=== PATIENT | male | born 1945 | race Caucasian/White ===

== ENCOUNTER → 2018-11-12 | Outpatient (CLI) | payer MEDICARE | END | disposition home or self-care (01) | LOC: LAB 13:29 | PROVIDERS: ATTEND Otolaryngology Plastic Surgery within the Head & Neck | DX: R42 Dizziness and giddiness (principal) | CPT/HCPCS: 36415; 82565; 84520 ==

== ENCOUNTER → 2018-11-13 | Outpatient (CLI) | payer MEDICARE ==
[~2018-11-13] MED LIST: GADODIAMIDE 10 MMOL/20 ML ML IV ONE
== END | disposition home or self-care (01) ==
LOC: RAH 12:49
PROVIDERS: ATTEND Otolaryngology Plastic Surgery within the Head & Neck
DX: G31.9 Degenerative disease of nervous system, unspecified (principal); R42 Dizziness and giddiness
CPT/HCPCS: 70553; A9579

== ENCOUNTER 2022-06-18 05:51 | Observation (INO) | payer MEDICARE ==
[2022-06-14 11:29] LABS: APPEARANCE,URINE CLEAR (CLEAR); BILIRUBIN,URINE NEGATIVE (NEGATIVE); COLOR,URINE YELLOW (YELLOW); GLUCOSE, URINE (UA) NEGATIVE (NEGATIVE); KETONES,URINE NEGATIVE (NEGATIVE); LEUKOCYTE ESTERASE ,URINE NEGATIVE (NEGATIVE); NITRATE,URINE NEGATIVE (NEGATIVE); OCCULT BLOOD,URINE NEGATIVE (NEGATIVE); PROTEIN,URINE NEGATIVE (NEGATIVE); UROBILINOGEN,URINE 0.2 mg/dL (0.2-1.0)
[2022-06-14 12:01] LABS: BASOPHILS % (AUTO) 0.6 % (0.0-5.0); EOSINOPHILS % (AUTO) 2.3 % (0.0-8.0); HEMATOCRIT 41.6 % (42-54); LYMPHOCYTES % (AUTO) 34.5 % (21.0-51.0); MEAN CORPUSCULAR HEMOGLOBIN 29.3 pg (27.0-33.0); MEAN CORPUSCULAR HGB CONC 33.2 g/dL (32.0-36.0); MEAN CORPUSCULAR VOLUME 88.3 fL (79-99); MONOCYTES % (AUTO) 11.3 % (3.0-13.0); NEUTROPHILS % (AUTO) 51.1 % (40.0-77.0); PLATELET COUNT (AUTO) 133 K/uL (130-400); RED BLOOD CELL COUNT(AUTO) 4.71 MIL/uL (4.50-6.20); RED CELL DISTRIBUTION WIDTH 12.8 % (11.0-15.5); WHITE BLOOD COUNT (AUTO) 6.2 K/uL (4.8-10.8)
[2022-06-14 12:10] LABS: INR 0.93 (0.85-1.15)
[2022-06-14 12:11] LABS: PARTIAL THROMBOPLASTIN TIME 30.2 SEC (26.3-35.5)
[2022-06-14 12:16] LABS: POTASSIUM 4.2 mmol/L (3.5-5.1)
[2022-06-14 12:44] LABS: B-TYPE NATRIURETIC PEPTIDE 119 pg/mL (0-100)
[2022-06-14 13:29] VITALS: BP 177/86
[~2022-06-18] VITALS: Ht 175.3 cm; Wt 112.8 kg
[2022-06-18] VITALS (14 sets, daily range): BP systolic 139–189; BP diastolic 66–102
[~2022-06-18 05:51] MED LIST changes: +BETA60LO TP; +CITA-107 PO; +CYAN200018 PO; +DIPH1TAB24 PO; +GABA-529 PO; -GADODIAMIDE 10 MMOL/20 ML ML IV ONE; +LISI10TA24 PO; +LORA10TA7 PO; +MEMA5TAB42 PO
[2022-06-18] MEDS ORDERED: 0.9% NACL 500ML IV.SOLN 500 ML IV SCH (06:00)
[2022-06-18] MEDS ORDERED: 0.9%NACL 1000ML 1,000 ML IV ONE (06:17)
[2022-06-18] MEDS ORDERED: LIDOCAINE HCL 400MG/20ML VIAL ONE (09:25)
[2022-06-18] MEDS ORDERED: IOHEXOL-350 50ML VIAL IV ONE (09:25)
[2022-06-18] MEDS ORDERED: NITROGLYCERIN 50MG VIAL ONE (09:25)
[2022-06-18] MEDS ORDERED: IOHEXOL 350 MG/ML 100ML INFUS..BTL IV ONE ×2 (09:27→10:34)
[2022-06-18] MEDS ORDERED: MIDAZOLAM HCL 1 MG/ML 2ML VIAL ONE (09:57)
[2022-06-18] MEDS ORDERED: FENTANYL CITRATE PF 50 MCG/1 ML 2ML VIAL ONE (09:57)
[2022-06-18] MEDS ORDERED: BIVALIRUDIN 250 MG/VIAL IV ONE (10:29)
[2022-06-18] MEDS ORDERED: CLOPIDOGREL 300MG TAB ONE (10:44)
[2022-06-18] MEDS ORDERED: ASPIRIN 325MG EC TAB PO ONE (10:45)
[2022-06-18] MEDS ORDERED: DEXTROSE 50%-WATER 50 ML DISP.SYRIN IV PRN (11:00)
[2022-06-18] MEDS ORDERED: GLUCAGON 1MG KIT 1 MG ML IM PRN (11:00)
[2022-06-18] MEDS ORDERED: 0.9%NACL 1000ML 1,000 ML IV SCH (11:00)
[2022-06-18] MEDS ORDERED: ATORVASTATIN 10 MG TABLET PO SCH (21:00)
[2022-06-19 00:21] VITALS: BP 144/88
[2022-06-19 03:21] VITALS: BP 143/79
[2022-06-19 07:17] VITALS: BP 150/97
[2022-06-19] MEDS ORDERED: METOPROLOL SUCCINATE 25 MG TAB.SR.24H PO SCH (09:00)
[2022-06-19] MEDS ORDERED: ASPIRIN 81MG CHEW TAB PO SCH (09:00)
[2022-06-19] MEDS ORDERED: CLOPIDOGREL 75MG TAB PO SCH (09:00)
[2022-06-19] MEDS ORDERED: ACETAMINOPHEN 325 MG TAB PO SCH (11:00)
[2022-06-19 11:35] VITALS: BP 132/76
== END 2022-06-19 13:20 | disposition home or self-care (01) ==
LOC: DAH 05:51 → DAHIP 05:52 → DAH 05:52 → 2AH 11:30
PROVIDERS: ADMIT Internal Medicine Cardiovascular Disease; ATTEND Internal Medicine Cardiovascular Disease
DX: I25.10 Atherosclerotic heart disease of native coronary artery without angina pectoris (principal); I35.0 Nonrheumatic aortic (valve) stenosis; I11.0 Hypertensive heart disease with heart failure; I50.32 Chronic diastolic (congestive) heart failure; N40.0 Benign prostatic hyperplasia without lower urinary tract symptoms; G30.9 Alzheimer's disease, unspecified; F02.80 Dementia in other diseases classified elsewhere, unspecified severity, without behavioral disturbance, psychotic disturbance, mood disturbance, and anxiety; Z98.61 Coronary angioplasty status; Z79.899 Other long term (current) drug therapy
CPT/HCPCS: 80048; 83880; 85025; 85610; 85730; 81003; 36415; 71045; 93005; 93454; 76882; C1769; C1887; C1894 ×4; C1760; C1874; Q9965 ×3; G0378 ×26; J3010; J3490 ×2; J7030 ×2; J2250; J1644; J0583; Q9967 ×3; A4215; A4223 ×3; A4222; A4221; A4663; A4216; A4606; C9600; 99156; 99157

== ENCOUNTER → 2024-03-15 | Outpatient (CLI) | payer MEDICARE ==
[~2024-03-15] MED LIST changes: -BETA60LO TP; +DIPH-1150 PO; -DIPH1TAB24 PO; +MEMA5TAB16 PO; -MEMA5TAB42 PO
== END | disposition home or self-care (01) ==
LOC: SHCH 13:40
PROVIDERS: ATTEND Internal Medicine Cardiovascular Disease
DX: I87.2 Venous insufficiency (chronic) (peripheral) (principal)
CPT/HCPCS: 93971